=== PATIENT | female | born 1955 | race Two or more races ===

== ENCOUNTER 2020-12-24 04:43 | Emergency (ER) | payer OTHER ==
[~2020-12-24] VITALS: Ht 157.5 cm; Wt 54.4 kg
[2020-12-24] MEDS ORDERED: SYNTHROID75 MCG (04:53)
[2020-12-24] MEDS ORDERED: prolea (04:54)
== END 2020-12-24 10:23 | disposition home or self-care (01) ==
LOC: ER 04:43 → CPU-OBS 04:57 → ER 10:23
DX: R00.2 Palpitations (principal); N39.0 Urinary tract infection, site not specified; R31.29 Other microscopic hematuria
CPT/HCPCS: G0378; G0379; 93005